=== PATIENT | female | born 1990 | race African-American/Black ===

== ENCOUNTER 2020-07-06 21:46 | Emergency (ER) | payer OTHER ==
[~2020-07-06] VITALS: Ht 157.5 cm; Wt 68.0 kg
[2020-07-06 22:31] LABS: URINE BILIRUBIN NEGATIVE (Negative); URINE BLOOD NEGATIVE (Negative); URINE CLARITY CLEAR; URINE COLOR YELLOW; URINE GLUCOSE-RANDOM* NEGATIVE (Negative); URINE KETONES NEGATIVE (Negative); URINE LEUKOCYTES-REFLEX NEGATIVE (Negative); URINE NITRITE-REFLEX NEGATIVE (Negative); URINE PROTEIN (DIPSTICK) NEGATIVE (Negative); URINE SPECIFIC GRAVITY >= 1.030 (1.005-1.035)
[2020-07-07 00:48] LABS: ABSOLUTE NEUTROPHILS 5.2 thou/uL (1.4-8.2); BASOPHILS 0.7 % (0.0-2.0); EOSINOPHILS 0.2 % (0.0-3.0); HEMATOCRIT 33.6 % (37.0-47.0); HEMOGLOBIN 10.8 gm/dL (12.0-15.0); LYMPHOCYTES 18.6 % (24.0-44.0); MCH 26.1 pg (26.0-34.0); MCHC 32.1 g/dL (28.0-37.0); MCV 81.5 fL (80.0-100.0); MONOCYTES 6.3 % (1.0-8.0); PLATELET COUNT 313 thou/uL (150-400); POLYS 74.2 % (36.0-66.0); RBC 4.13 mil/uL (4.20-5.00)
[2020-07-07 00:49] LABS: ANION GAP 11 mmol/L (7-16); BUN 17 mg/dL (7-18); CALCIUM 8.7 mg/dL (8.5-10.1); CHLORIDE 103 mmol/L (98-107); CO2 27 mmol/L (21-32); CREATININE 0.8 mg/dL (0.6-1.0); GLUCOSE 127 mg/dL (74-106); POTASSIUM 3.7 mmol/L (3.5-5.1); SODIUM 141 mmol/L (136-145)
[2020-07-07 00:59] LABS: ALBUMIN 3.7 g/dL (3.4-5.0); SGOT 15 U/L (15-37); SGPT 15 U/L (30-65); TOTAL BILIRUBIN 0.2 mg/dL (0.2-1.0); TOTAL PROTEIN 7.4 g/dL (6.4-8.2); TROPONIN-I <0.06 ng/mL (<0.06)
[2020-07-07] MEDS ORDERED: LEVOTHYROXINE50 MCG PO (01:01)
[2020-07-07] MEDS ORDERED: ESTARYLLA1 EACH PO (01:02)
[2020-07-07 02:25] VITALS: BP 122/76
--- NOTE | 2020-07-07 17:30 | EKG ---
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
--- NOTE | 2020-07-07 17:31 | EKG ---
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 : 1990 Requested By: Gustavo Mills Order Number: [id number] MD: Dmitriy Mathis Measurements Intervals [place] Rate: 100 P: 66 [place]: 149 QRS: 61 QRSD: 83 T: 42 QT: 334 QTc: 431 Interpretive Statements Sinus tachycardia Otherwise normal tracing Compared to ECG 07/06/2020 22:26:50 T-wave abnormality no longer present Prolonged QT interval no longer present Electronically Signed On 07-07-2020 17:31:30 CDT by Dmitriy Mathis [email or web address] <ELECTRONICALLY SIGNED> By: Dmitriy Mathis MD, [facility] 07/07/20 1731 [id number] [id number] Dmitriy Mathis MD, FACC /EPI
== END 2020-07-07 02:25 | disposition home or self-care (01) ==
LOC: ER 21:46
PROVIDERS: Emergency Medicine
DX: F12.929 Cannabis use, unspecified with intoxication, unspecified (principal); R00.0 Tachycardia, unspecified; Z88.6 Allergy status to analgesic agent; Z79.899 Other long term (current) drug therapy